=== PATIENT | female | born 1955 | race Caucasian/White ===

== ENCOUNTER 2023-07-30 08:17 | Inpatient (IN) | payer MEDICARE, BC ==
[~2023-07-30] VITALS: Ht 165.1 cm; Wt 72.6 kg
[2023-07-30 07:00] VITALS: BP 124/67; TEMP 97.5; O2SAT 96
[2023-07-30] MEDS ORDERED: LIDOCAINE 2%-EPI 1:100,000 30 ML VIAL ONE (08:53)
[2023-07-30] MEDS ORDERED: dexaMETHasone SOD PHOSPHATE 10 MG/ML VIAL ONE (08:53)
[2023-07-30] MEDS ORDERED: VANCOMYCIN 1 GM VIAL ONE (08:54)
[2023-07-30] MEDS ORDERED: OXYMETAZOLINE HCL NASAL SPRAY 30 ML BOTTLE NS ONE (08:54)
[2023-07-30] MEDS ORDERED: LEVO75TA7 PO (09:00)
[2023-07-30] MEDS ORDERED: FENTANYL PF 100MCG/2ML AMPUL ONE (09:55)
[2023-07-30] MEDS ORDERED: FAMOTIDINE/PF INJ 20 MG/2 ML VIAL IV ONE (09:55)
[2023-07-30] MEDS ORDERED: ROCURONIUM BROMIDE 50 MG/5 ML ONE (09:55)
[2023-07-30] MEDS ORDERED: CELLULOSE,OXIDIZED 1 EA PACK MC ONE (11:48)
[2023-07-30] MEDS ORDERED: ESMOLOL INJ 100 MG/10 ML VIAL IV ONE (11:49)
[2023-07-30] MEDS ORDERED: IV NS 0.9% 1,000 ML BAG IV PRN (13:00)
[2023-07-30] MEDS ORDERED: IV NS 0.9% 1,000 ML IV PRN (13:00)
[2023-07-30] MEDS ORDERED: HYDROMORPHONE 1 MG/1 ML DISP.SYRIN IV PRN (13:30)
[2023-07-30] MEDS ORDERED: ONDANSETRON HCL/PF 4 MG/2 ML VIAL IVP PRN (13:30)
[2023-07-30 16:00] VITALS: BP 111/63; TEMP 99.3; O2SAT 94
[2023-07-30] MEDS: ACETAMINOPHEN 325 MG TABLET PO PRN (16:26)
[2023-07-30] MEDS: VANCOMYCIN 1 GM in IV D5W 250ml IV SCH (23:21)
[2023-07-31] MEDS: ACETAMINOPHEN 325 MG TABLET PO PRN ×2 (06:13→11:59)
[2023-07-31 08:00] VITALS: BP 102/56; TEMP 98.1; O2SAT 97
[2023-07-31] MEDS: VANCOMYCIN 1 GM in IV D5W 250ml IV SCH (10:01)
== END 2023-07-31 12:15 | disposition home or self-care (01) | DRG 516 ==
LOC: DS 08:17 → MED 08:18
PROVIDERS: ADMIT Internal Medicine; ATTEND Internal Medicine
PROC: 09BR0ZZ Excision of Left Maxillary Sinus, Open Approach (ICD-10-PCS; principal; 2023-07-30)
PROC: 0NUR07Z Supplement Maxilla with Autologous Tissue Substitute, Open Approach (ICD-10-PCS; 2023-07-30)
PROC: 09UR07Z Supplement Left Maxillary Sinus with Autologous Tissue Substitute, Open Approach (ICD-10-PCS; 2023-07-30)
PROC: 0NPW0JZ Removal of Synthetic Substitute from Facial Bone, Open Approach (ICD-10-PCS; 2023-07-30)
DX: T84.318A Breakdown (mechanical) of other bone devices, implants and grafts, initial encounter (principal); S02.40DK Maxillary fracture, left side, subsequent encounter for fracture with nonunion; T84.7XXA Infection and inflammatory reaction due to other internal orthopedic prosthetic devices, implants and grafts, initial encounter; E03.9 Hypothyroidism, unspecified; E78.5 Hyperlipidemia, unspecified; I10 Essential (primary) hypertension; R73.03 Prediabetes; Z85.42 Personal history of malignant neoplasm of other parts of uterus; Z95.2 Presence of prosthetic heart valve; Z92.21 Personal history of antineoplastic chemotherapy; Y83.8 Other surgical procedures as the cause of abnormal reaction of the patient, or of later complication, without mention of misadventure at the time of the procedure; Y92.009 Unspecified place in unspecified non-institutional (private) residence as the place of occurrence of the external cause; J32.9 Chronic sinusitis, unspecified
CPT/HCPCS: A4223; C1713; G0378; J1100; J1170; J2704; J2765; J3010; J3370; J3490; J7030; J7060

== ENCOUNTER 2024-11-10 08:44 | Inpatient (IN) | payer MEDICARE, BC ==
[~2024-11-10] VITALS: Ht 165.1 cm; Wt 72.6 kg
[~2024-11-10 08:44] MED LIST: LEVO75TA7 PO
[2024-11-10] MEDS ORDERED: dexaMETHasone SOD PHOSPHATE 2 ML ONE (13:14)
[2024-11-10] MEDS ORDERED: VANCOMYCIN 1 GM VIAL ONE (13:14)
[2024-11-10] MEDS ORDERED: LIDOCAINE 2%-EPI 1:100,000 30 ML VIAL ONE (13:14)
[2024-11-10] MEDS ORDERED: OXYMETAZOLINE HCL NASAL SPRAY 30 ML BOTTLE NS ONE (13:14)
[2024-11-10 15:50] VITALS: BP 121/69; TEMP 98; O2SAT 98
[2024-11-10] MEDS ORDERED: ONDANSETRON HCL/PF 4 MG/2 ML VIAL IV PRN (16:00)
[2024-11-10] MEDS ORDERED: ANESTHESIA TRAY IN PYXIS 1 EA TRAY MC ONE (16:20)
[2024-11-10] MEDS ORDERED: HYDROMORPHONE 1 MG/1 ML DISP.SYRIN IV PRN (16:30)
[2024-11-10] MEDS: IV NS 0.9% 1,000 ML IV PRN (16:31)
[2024-11-10] MEDS: ACETAMINOPHEN 325 MG TABLET PO PRN (16:31)
[2024-11-10 20:00] VITALS: BP 115/66; TEMP 98.2; O2SAT 96
[2024-11-11] MEDS: VANCOMYCIN 1 GM in IV D5W 250ml IV SCH (01:10)
[2024-11-11] MEDS: IBUPROFEN 600 MG TABLET PO PRN (01:36)
[2024-11-11 08:00] VITALS: BP 106/58; TEMP 98.2; O2SAT 100
[2024-11-11] MEDS: LEVOTHYROXINE SODIUM 75 MCG TABLET PO SCH (09:23)
[2024-11-11 14:13] VITALS: TEMP 98.2
== END 2024-11-11 14:55 | disposition home or self-care (01) | DRG 908 ==
LOC: DS 08:44 → MED 15:57
PROC: 0NSR04Z Reposition Maxilla with Internal Fixation Device, Open Approach (ICD-10-PCS; principal; 2024-11-10)
PROC: 0NUR07Z Supplement Maxilla with Autologous Tissue Substitute, Open Approach (ICD-10-PCS; 2024-11-10)
PROC: 0N5R0ZZ Destruction of Maxilla, Open Approach (ICD-10-PCS; 2024-11-10)
PROC: 0NPW07Z Removal of Autologous Tissue Substitute from Facial Bone, Open Approach (ICD-10-PCS; 2024-11-10)
DX: T86.831 Bone graft failure (principal); M87.9 Osteonecrosis, unspecified; S02.40DK Maxillary fracture, left side, subsequent encounter for fracture with nonunion; J32.0 Chronic maxillary sinusitis; E03.9 Hypothyroidism, unspecified; E78.5 Hyperlipidemia, unspecified; Z95.2 Presence of prosthetic heart valve; Z85.42 Personal history of malignant neoplasm of other parts of uterus; Y92.009 Unspecified place in unspecified non-institutional (private) residence as the place of occurrence of the external cause; Y83.2 Surgical operation with anastomosis, bypass or graft as the cause of abnormal reaction of the patient, or of later complication, without mention of misadventure at the time of the procedure; R73.03 Prediabetes; C55 Malignant neoplasm of uterus, part unspecified; Z92.21 Personal history of antineoplastic chemotherapy; Z98.891 History of uterine scar from previous surgery; M27.2 Inflammatory conditions of jaws
CPT/HCPCS: 87081-TC; A4338; C1713; G0378; J0360; J0690; J1100; J2405; J2704; J3370; J3490; J7030; J7060